=== PATIENT | male | born 1945 | race Caucasian/White ===

== ENCOUNTER 2017-04-14 08:00 | Outpatient (CLI) | payer MEDICARE, BC ==
[2017-04-14 19:06] LABS: BASOPHILS # (AUTO) 0.1 10^3/uL (0.0-0.1); BASOPHILS % (AUTO) 0.9 %; EOSINOPHILS # (AUTO) 0.2 10^3/uL (0.0-0.7); EOSINOPHILS % (AUTO) 2.6 %; HGB - HEMOGLOBIN 15.6 g/dL (14.0-18.0); LYMPHOCYTES # (AUTO) 1.8 10^3/uL (1.5-3.5); LYMPHOCYTES % (AUTO) 20.8 %; MEAN CORPUSCULAR HEMOGLOBIN 30.8 pg (27.0-31.0); MEAN CORPUSCULAR HGB CONC 33.5 g/dL (32.0-36.0); MEAN CORPUSCULAR VOLUME 91.8 fL (80.0-94.0); MEAN PLATELET VOLUME 10.2 fL (7.4-11.4); MONOCYTES # (AUTO) 0.7 10^3/uL (0.0-1.0); MONOCYTES % (AUTO) 7.8 %; NEUTROPHILS # (AUTO) 5.9 10^3/uL (1.5-6.6); NEUTROPHILS % (AUTO) 67.9 %; PLT - PLATELET COUNT 213 10^3/uL (130-450); RED BLOOD COUNT 5.06 10^6/uL (4.70-6.10); RED CELL DISTRIBUTION WIDTH 12.6 % (12.0-15.0); WHITE BLOOD COUNT 8.7 x10^3/uL (4.8-10.8)
[2017-04-14 19:24] LABS: ALBUMIN 4.3 g/dL (3.2-5.5); ALBUMIN/GLOBULIN RATIO 1.5 (1.0-2.2); ALKALINE PHOSPHATASE 50 IU/L (42-121); ALT ALANINE AMINOTRANSFERASE 28 IU/L (10-60); AST ASPARTATE AMINOTRANSFERASE 24 IU/L (10-42); BUN - BLOOD UREA NITROGEN 26 mg/dL (6-20); CALCIUM 9.2 mg/dL (8.5-10.3); CARBON DIOXIDE - CO2 27 mmol/L (21-32); CHLORIDE 103 mmol/L (101-111); CHOL/HDL RATIO 3.9 (<5.0); CHOLESTEROL 125 mg/dL; CREATININE 1.2 mg/dL (0.6-1.2); GFR - MDRD 60 (>89); GLUCOSE 102 mg/dL (70-100); HDL CHOLESTEROL 32 mg/dL; LDL CHOLESTEROL,CALCULATED 78 mg/dL; LDL/HDL RATIO 2.4 (<3.6); SODIUM 136 mmol/L (135-145); TOTAL PROTEIN 7.2 g/dL (6.7-8.2); VLDL CHOLESTEROL 15 mg/dL
== END 2017-04-14 08:01 | disposition home or self-care (01) ==
LOC: LAB.WCP 08:00
PROVIDERS: ATTEND Family Medicine
DX: R73.9 Hyperglycemia, unspecified (principal); E78.5 Hyperlipidemia, unspecified; E03.9 Hypothyroidism, unspecified; I48.0 Paroxysmal atrial fibrillation
CPT/HCPCS: 36415; 80053; 80061; 83721; 84443; 85025

== ENCOUNTER 2017-11-01 10:21 | Outpatient (CLI) | payer MEDICARE, BC ==
--- NOTE | 2017-11-01 11:41 | XRAY Report ---
Reason: DEGENERATIVE DISC DISEASE,CERVICAL SPINE Procedure Date: 11/01/2017 Accession Number: [id number] / [id number] Procedure: XR - Cervical Spine 2 View CPT Code: FULL RESULT: EXAM: CERVICAL SPINE RADIOGRAPHY EXAM DATE: 11/01/2017 10:44 AM. CLINICAL HISTORY: Chronic neck stiffness and pain for 6 years. COMPARISONS: None. TECHNIQUE: 3 views. FINDINGS: Alignment: Normal. No spondylolisthesis or scoliosis. Bones: The cervical vertebral bodies and posterior elements are well visualized from the skull base through C7. No fractures or bone lesions. Disks: There is loss of disk space height which is most pronounced at C4 through C7. Facets: Facets appear relatively preserved, uncovertebral joints demonstrate moderate degenerative changes. Soft Tissues: Subtle calcification in the right neck soft tissues likely represents carotid bulb calcifications. IMPRESSION: Degenerative disk disease of the lower cervical spine. RADIA
== END 2017-11-01 10:22 | disposition home or self-care (01) ==
LOC: DI 10:21
PROVIDERS: ATTEND Family Medicine
DX: M50.320 Other cervical disc degeneration, mid-cervical region, unspecified level (principal); M47.892 Other spondylosis, cervical region
CPT/HCPCS: 72040

== ENCOUNTER 2017-11-29 15:46 | Outpatient (CLI) | payer MEDICARE, BC ==
--- NOTE | 2017-11-30 12:26 | MRI Report ---
Reason: DEGENERATIVE DISC DISEASE,CERVICAL SPINE Procedure Date: 11/29/2017 Accession Number: [id number] / [id number] Procedure: MRI - Cervical Spine W/O CPT Code: FULL RESULT: EXAM: MRI CERVICAL SPINE WITHOUT CONTRAST EXAM DATE: 11/29/2017 04:26 PM. CLINICAL HISTORY: Degenerative disk disease, cervical spine. COMPARISONS: CERVICAL SPINE 2 VIEW 11/01/2017 10:27 AM. TECHNIQUE: Multiplanar, multisequence T1-weighted and fluid-sensitive sequences of the cervical spine without contrast. Other: None. FINDINGS: Neurologic Structures: The visualized posterior fossa structures are unremarkable. No signal abnormality in the visualized spinal cord. Alignment: Grade 1 retrolisthesis at C4-C5 by approximately 2 mm. Bone Marrow: No gross fractures or bone lesions. No marrow edema. Interspace Levels/Facets: The craniocervical junction is unremarkable. C1-C2: Unremarkable. C2-C3: Mild to moderate facet arthropathy. No stenoses. C3-C4: Tiny posterior central disk protrusion. Bilateral uncovertebral joint osteophytes. Mild to moderate facet arthropathy. Minimal canal narrowing. Mild to moderate right foraminal stenosis. C4-C5: Type II degenerative endplate changes. Mild to moderate disk space narrowing. Small to moderate sized posterior central disk protrusion/osteophyte complex. Bilateral uncovertebral joint osteophytes. The disk protrusion/osteophyte complex indents the ventral aspect of the cord. No cord displacement or abelardo cord impingement. Mild to moderate canal stenosis. Moderate to severe foraminal stenoses. C5-C6: Degenerative endplate changes. Severe disk space narrowing. Partial bony autofusion between the C5 and C6 vertebral bodies. Small disk bulge/osteophyte complex and bilateral uncovertebral joint osteophytes. Mild canal stenosis. Severe left and moderate to severe right foraminal stenoses. C6-C7: Small posterior right paracentral-foraminal disk protrusion/osteophyte complex. Bilateral uncovertebral joint osteophytes. Mild to moderate right-sided canal stenosis. No cord impingement. Moderate narrowing of the entry zone of the exiting right C7 nerve. Severe left and moderate right foraminal stenoses. C7-T1: Moderate left and mild to moderate right facet arthropathy. Mild to moderate foraminal stenoses. T1-T2: Small posterior central to left paracentral disk protrusion. Mild canal stenosis. Moderate left and moderate facet arthropathy. Moderate left and mild right foraminal stenoses. Musculature: Normal. No edema or fatty atrophy. Other: The paravertebral and prevertebral soft tissues are normal. IMPRESSION: 1. Multilevel degenerative disk changes, osteophytosis, and facet arthropathy. Some of the more significant levels are at C4-C5, C5-C6, C6-C7. Please see above for level by level details. 2. Small to moderate sized posterior central disk protrusion/osteophyte complex at C4-C5. Mild to moderate canal stenosis and moderate to severe foraminal stenoses. 3. Small disk bulge/osteophyte complex, severe disk space narrowing, and partial bony autofusion at C5-C6. Mild canal stenosis. Severe left and moderate to severe right foraminal stenoses. 4. Small posterior right paracentral-foraminal disk protrusion/osteophyte complex at C6-C7. Mild to moderate right-sided canal stenosis and moderate narrowing of the entry zone of the exiting right C7 nerve. Severe left and moderate right foraminal stenoses. RADIA
== END 2017-11-29 15:47 | disposition home or self-care (01) ==
LOC: DI 15:46
PROVIDERS: ATTEND Family Medicine
DX: M50.21 Other cervical disc displacement, high cervical region (principal); M48.02 Spinal stenosis, cervical region; M47.9 Spondylosis, unspecified; M51.24 Other intervertebral disc displacement, thoracic region; M48.04 Spinal stenosis, thoracic region
CPT/HCPCS: 72141

== ENCOUNTER 2018-09-23 16:05 | Emergency (ER) | payer MEDICARE, BC ==
[2018-09-23 16:14] VITALS: BP 141/71
[2018-09-23] MEDS ORDERED: LIDOCAINE TOPICAL 4% 50 ML BOTTLE MM STA (16:17)
--- NOTE | 2018-09-23 16:34 | ED Physician Documentation ---
History of Present Illness - Stated complaint Stated Complaint: LODGED VITAMIN/NASAL CAVITY - Chief complaint Chief Complaint: Heent - History obtained from History obtained from: Patient, Family - History of Present Illness Timing: Today Pain level max: 2 Pain level now: 1 - Additonal information Additional information: 72-year-old male states that he was taking a vitamin, when he felt like it went up his nose. On the right side. No bleeding. Nothing makes it better or worse. Review of Systems Constitutional: denies: Fever, Chills Nose: denies: Epistaxis, Sinus pressure / pain Respiratory: denies: Cough Skin: denies: Rash PD PAST MEDICAL HISTORY - Past Medical History Past Medical History: No - Past Surgical History Past Surgical History: No - Allergies Allergies/Adverse Reactions: Allergies Allergy/AdvReac Type Severity Reaction Status Date / Time No Known Drug Allergies Allergy Verified 09/23/18 16:12 - Living Situation Living Arrangement: reports: At home - Social History Does the pt have substance abuse?: No PD ED PE NORMAL - Vitals Vital signs reviewed: Yes - General General: Alert and oriented X 3, No acute distress - HEENT HEENT: Ears normal, Moist mucous membranes, Pharynx benign, Other (No visible foreign bodies in the nose or throat) - Neck Neck: Supple, no meningeal sign, No bony TTP - Cardiac Cardiac: RRR, Strong equal pulses - Respiratory Respiratory: No respiratory distress, Clear bilaterally - Derm Derm: Warm and dry - Neuro Neuro: Alert and oriented X 3 Results - Vitals Vitals: Vital Signs - 24 hr 09/23/18 16:09 Temperature 36.4 C L Heart Rate 71 Respiratory 18 Rate Blood Pressure 141/71 H O2 Saturation 95 Oxygen O2 Source Room air PD MEDICAL DECISION MAKING - ED course Complexity details: considered differential, d/w patient ED course: 72-year-old male with potential foreign body (vitamin C?) in the nose. No visible foreign bodies. Topical lidocaine was atomized into the nares and Vasques catheters were passed through each of the nare. No obstructions encountered. Breathing without difficulty. We will have him follow-up with his doctor as needed. Possible that this dislodged and he is feeling abrasions near the adenoids? Patient counseled regarding signs and symptoms for which I believe and urgent re-evaluation would be necessary. Patient with good understanding of and agreement to plan and is comfortable going home at this time This document was made in part using voice recognition software. While efforts are made to proofread this document, sound alike and grammatical errors may occur. Departure - Departure Disposition: 01 Home, Self Care Clinical Impression: Foreign body in nose Qualifiers: Encounter type: initial encounter Qualified Code(s): T17.1XXA - Foreign body in nostril, initial encounter Instructions: ED Foreign Body Nasal Follow-Up: Celia Valverde MD [Primary Care Provider] - Within 1 week Comments: Return if you worsen. This should improve over the next 24-48 hours. I cannot visualize any foreign body today. Discharge Date/Time: 09/23/18 16:43
== END 2018-09-23 16:43 | disposition home or self-care (01) ==
LOC: ED 16:05
DX: T17.1XXA Foreign body in nostril, initial encounter (principal); X58.XXXA Exposure to other specified factors, initial encounter; Y93.89 Activity, other specified
CPT/HCPCS: 99282

== ENCOUNTER 2020-06-27 16:00 | Outpatient (CLI) | payer OTHER, MEDICARE ==
--- NOTE | 2020-06-27 16:36 | XRAY Report ---
PROCEDURE: Thoracic Spine 2 View INDICATIONS: T SPINE PAIN TECHNIQUE: 3 views of the thoracic spine were acquired. COMPARISON: None. FINDINGS: Bones: No fractures or dislocations. No suspicious bony lesions. Multilevel endplate osteophytes an d disc space narrowing. Visualized ribs are intact. Soft tissues: No paravertebral stripe thickening. IMPRESSION: Multilevel degenerative disc disease. No acute fracture. No osseous lesion. If symptoms and/or clinic al suspicion for pathology continue, further assessment with repeat plain films, or advanced imaging (e.g., CT, MRI, or bone scan) is recommended for further assessment. Reviewed by: Macrina Major MD on 06/27/2020 4:35 PM PDT Approved by: Macrina Major MD on 06/27/2020 4:35 PM PDT Station ID: [id number]
== END 2020-06-27 16:01 | disposition home or self-care (01) ==
LOC: DI 16:00
PROVIDERS: ATTEND Internal Medicine
DX: M51.34 Other intervertebral disc degeneration, thoracic region (principal)

== ENCOUNTER 2020-08-09 12:42 | Outpatient (CLI) | payer MEDICARE, OTHER ==
--- NOTE | 2020-08-09 14:23 | XRAY Report ---
PROCEDURE: Knee 4 View LT INDICATIONS: LEFT KNEE PAIN TECHNIQUE: 4 views of the left knee(s) were acquired. COMPARISON: None. FINDINGS: Bones: No fractures or dislocations but there is moderate degenerative osteoarthritic change at the medial compartment of the left knee, with reactive sclerosis in the adjacent subcortical marrow space , both in the tibial plateau and distal femoral condyle medially.. No suspicious bony lesions. Soft tissues: No joint effusion. No suspicious soft tissue calcifications. IMPRESSION: No acute trauma found, no effusion or loose body seen. There is moderate degenerative os teoarthritis at the medial compartment of the knee with a small degree of reactive sclerosis. At the patellofemoral joint there is mild lateral facet patellofemoral joint osteoarthritis. Reviewed by: Weston Correia MD on 08/09/2020 1:22 PM ALIZA Approved by: Weston Correia MD on 08/09/2020 1:22 PM ALIZA Station ID: [id number]
--- NOTE | 2020-08-09 14:25 | XRAY Report ---
PROCEDURE: Hip w/Pelvis 2-3V LT INDICATIONS: LATERAL HIP PAIN / HX OF FEMUR FX TECHNIQUE: AP pelvis with lateral view(s) of the left hip(s). COMPARISON: None. FINDINGS: Bones: No acute or chronic fractures or dislocations. Pelvic ring appears intact. No suspicious arian ny lesions. Midshaft left femoral healed fracture incidentally noted. Soft tissues: The visualized bowel gas pattern is normal. No suspicious soft tissue calcifications. IMPRESSION: The clinical history indicates prior fracture, but no hip fractures are found. Rather, a diaphyseal healed fracture from the distant past is noted at the left femur.. Reviewed by: Weston Correia MD on 08/09/2020 1:24 PM ALIZA Approved by: Weston Correia MD on 08/09/2020 1:24 PM ALIZA Station ID: [id number]
== END 2020-08-09 12:43 | disposition home or self-care (01) ==
LOC: DI 12:42
PROVIDERS: ATTEND Internal Medicine
DX: S72.8X2D Other fracture of left femur, subsequent encounter for closed fracture with routine healing (principal); M17.12 Unilateral primary osteoarthritis, left knee

== ENCOUNTER 2022-08-12 11:20 | Outpatient (CLI) | payer MEDICARE, OTHER ==
--- NOTE | 2022-08-12 15:21 | CT Report ---
PROCEDURE: PELVIS W INDICATIONS: BENIGN PROSTAE HYPERPLASIA CONTRAST: 100ml Omnipaque 300 TECHNIQUE: After the administration of intravenous contrast, a CT scan of the pelvis was performed. Images were recorded and evaluated at appropriate window settings. Reformats: axial MIP of the chest, coronal an d sagittal. For radiation dose reduction, the following was used: automated exposure control, adjustm ent of mA and/or kV according to patient size. COMPARISON: None FINDINGS: Image quality: Excellent. Bowel and peritoneum: No bowel distension. No pathologic free fluid. Diverticulosis without evidence of diverticulitis. Vessels: No infrarenal aortic aneurysm. Reproductive organs: The prostate is enlarged, measuring 5.2 x 5.1 x 5.3 cm Bladder: No abnormal wall thickening, accounting for underdistention. Pelvic lymph nodes: No pelvic adenopathy by size criteria. Bones: No aggressive osseous abnormality. Degenerative sacroiliitis. Other: Tiny umbilical hernia containing fat. IMPRESSION: Prostatomegaly. Colonic diverticulosis without evidence of diverticulitis. Reviewed by: Mayur Alvares on 08/12/2022 3:19 PM PDT Approved by: Mayur Alvares on 08/12/2022 3:19 PM PDT Station ID: [id number]
[2022-08-12] MEDS ORDERED: iohexoL-300 100 ML VIAL IVP ONE (16:17)
== END 2022-08-12 11:21 | disposition home or self-care (01) ==
LOC: LAB 11:20
PROVIDERS: ATTEND Urology
DX: N40.0 Benign prostatic hyperplasia without lower urinary tract symptoms (principal); K57.30 Diverticulosis of large intestine without perforation or abscess without bleeding
CPT/HCPCS: 36415; 72193; 82565; Q9967